=== PATIENT | female | born 1995 | race Caucasian/White ===

== ENCOUNTER 2016-09-25 11:14 | Inpatient (IN) | payer OTHER, MEDICAID ==
--- OUTSIDE RECORDS SUMMARY | 2016-09-25 11:18 | XMS REPORT | Continuity of Care Document ---
:1995 Author Organization [facility] ([facility]) Address [address] [place] [address] Phone [phone] Care Team Providers Name Role Phone Provider, No-Primary Care Primary Care Provider Unavailable Source Comments This disclosure is being made pursuant to the Care Everywhere program, applicable federal and state laws, and may not contain all informaitonavailable regarding this patient.[facility] ([facility]) Active Allergies and Adverse Reactions No Known Allergies Current Medications Prescription Sig. Disp. Refills Start Date End Date Status aspirin 81 mg chewable chew 1 tablet (81 04/02/2016 Active tablet mg) by oral route once daily folic acid 1 mg tablet take 1 tablet (1 03/05/2016 11/30/2016 Active mg) by oral route once daily for 30 days ferrous sulfate 325 mg take 1 capsule by 07/10/2016 02/05/2017 Active (65 mg iron) XR capsule oral route 2 times a day for 30 days URINE ACETONE 07/14/2016 11/11/2016 Active TEST,STRIPS (KETONE URINE TEST NA ) VIT 02/17/2016 02/11/2017 Active CALC,IRON,FOLIC ( VITAMIN PO) calcium carbonate (TUMS) Active (200 mg Ca) 500 mg chewable tablet Active Problems Problem Noted Date Dichorionic diamniotic twin in second trimester 09/03/2016 Currently Estimated Date of Delivery Comments Yes 10/12/2016 Based on Ultrasound Most Recent Encounters Date Type Specialty Providers Description 09/03/2016 Hospital Encounter Obstetrics Erin Montgomery, Dx: Twin , DO antepartum 09/03/2016 Office Visit Maternal Erin Montgomery, Dx: Obesity Medicine DO affecting , antepartum, third trimester (Primary Dx) 09/03/2016 Office Visit Maternal Erin Montgomery Chief Comp: Patient Medicine DO Reported Reason For Visit 08/13/2016 Telephone Obstetrics Sabrina Warren Dx: Twin , A, RN antepartum (Primary Dx) Social History Tobacco Use Types Packs/Day Years Used Date Never Smoker Alcohol Use Drinks/Week oz/Week Comments No 0 Standard drinks or equivalent 0.0 Last Filed Vital Signs Vital Sign Reading Time Taken Blood Pressure 130/65 09/03/2016 1:31 PM MAIL MESSENGER CONTRACTOR Pulse 90 09/03/2016 1:31 PM MAIL MESSENGER CONTRACTOR Temperature 36.4 C (97.5 F) 09/03/2016 1:31 PM MAIL MESSENGER CONTRACTOR Respiratory Rate - - Height 1.62 m (5' 3.78") 09/03/2016 1:31 PM MAIL MESSENGER CONTRACTOR Weight 98.6 kg (217 lb 6 oz) 09/03/2016 1:31 PM MAIL MESSENGER CONTRACTOR Body Mass Index 37.57 09/03/2016 1:31 PM MAIL MESSENGER CONTRACTOR Oxygen Saturation - - Plan of Care Health Maintenance Due Date Last Done Comments Hepatitis B Vaccine (1 of 3 - Primary Series) 1994 HPV Vaccine (1 of 3 - Female/Unknown 3 Dose Series) 2005 Tdap Vaccine 2005 Cervical Cancer Screening 02/24/2012 Lipid Disorder Screening 02/24/2012 MMR Vaccine 02/24/2012 Td Vaccine 02/24/2012 Varicella Vaccine (1 of 2 - Adult - No Evidence of 02/24/2012 Immunity) Influenza Vaccine: Seasonal (#1) 03/09/2016 Results from Last 3 Months IT INFRASTRUCTURE MANAGER/ DIAGNOSIS ULTRASOUND (09/03/2016 2:32 PM) Narrative Obstetric Ultrasound Report Detailed Survey Referral from: Dr. Leonidas Iraheta [address] Department of Obstetrics & Gynecology [address] [facility] [id number] OB Clinic IVF/ Endocrine PATIENT INFORMATION: Name: ELIZABETH EPPERSON MR#: [id number] Age:21 y/oExam Date: 09/03/2016 :1995 Visit #: 1 LMP:Not Available Location: Diagnosis & Treatment Unit # Fetuses: 2 INDICATION:Dichorionic Diamniotic twin gestation with discordant growth. Check growth and anatomy. TWINA Right, Inferior DATING: Assigned GA GA by LMPGA by US (CHELSY)CHELSY NA 36 5/7 wks 34 3/7 wks 10/12/16 BIOMETRY: BPD: 88.5 mm35 5/7 wksHC:325.8 mm 37 0/7 wks(67%) (71%) Femur: 71.8 mm36 5/7 wksAC:355.3 mm 39 3/7 wks(>97% (83%) EFW: 3392 gms7 lbs 8 oz (>95%) Lat Ventricles: 3.8 mm Heart Rate: 153 bpm FL/AC:0.2FL/BPD: 0.81 PRESENTATION/CORD/PLACENTA/FLUID/CERVIX: Presentation: Cephalic Umbilical Cord: Suboptimal visualization.Suboptimal visualization of insertion into the placenta. Placenta: Anterior Amniotic Fluid: Maximum Vertical Pocket=55 mm.Subjective AF Volume : Normal. ANATOMICAL SURVEY: Normal ------ Lateral Ventricles Cervical Spine Thoracic Spine Lumbar Spine Sacrum Four Chamber View Aortic ArchCardiac Pickford Cardiac Position Heart Rate Ductal ArchIVC SVCStomach Kidney - LeftKidney - Right Bladder Suboptimal Cerebellum Cisterna Magna ProfilePalate Nose Lips RVOT LVOT DiaphragmVentral Wall Forearm - Left Forearm - Right Hand - LeftHand - Right Lower Leg - Left Lower Leg - Right Foot - LeftFoot - Right Umbilical Cord Abnormal -------- None identified TARGETED CARDIAC: Ductal Arch: Normal IVC: Normal SVC: Normal TWINB Left, Superior DATING: Assigned GA GA by LMPGA by US (CHELSY)CHELSY NA 37 0/7 wks 34 3/7 wks 10/12/16 BIOMETRY: BPD: 87.8 mm35 3/7 wksHC:327.9 mm 37 2/7 wks(71%) (65%) Femur: 72.2 mm37 0/7 wksAC:359.0 mm 39 6/7 wks(>97% (86%) EFW: 3461 gms7 lbs 10 oz (>95% Lat Ventricles: 5.4 mm Nasal Bone: Present-10.4 Heart Rate: 146 bpmFL/AC:0.2 FL/BPD: 0.82 PRESENTATION/CORD/PLACENTA/FLUID/CERVIX: Presentation: Cephalic Umbilical Cord: Suboptimal visualization.Suboptimal visualization of insertion into the placenta. Placenta: Anterior Amniotic Fluid: Maximum Vertical Pocket=84 mm. ANATOMICAL SURVEY: Normal ------ Lateral Ventricles Profile Cervical Spine Thoracic Spine Lumbar Spine Sacrum Four Chamber ViewCardiac Pickford Cardiac Position Heart Rate DiaphragmStomach Kidney - LeftKidney - Right Bladder Suboptimal Cerebellum Cisterna Magna Palate Nose Lips RVOT LVOT Aortic Arch Ductal ArchIVC SVC Ventral Wall Forearm - Left Forearm - Right Hand - LeftHand - Right Lower Leg - Left Lower Leg - Right Foot - LeftFoot - Right Umbilical Cord Abnormal -------- None identified TARGETED CARDIAC: Ductal Arch: Suboptimal IVC: Suboptimal SVC: Suboptimal FRENCH BINDING FOLDER FINDINGS: Ovaries:Left:Not Seen Right: Not Seen EFW Summary Table Exam DateFetus #EFW Percentile ------ - >95 % >95 % AMNIOTIC FLUID VOLUME: Fetus A NORMALSubjective AF Volume: Normal.Maximum Vertical Pocket:55 mm CERVIX: Suboptimal visualization MULTIPLE GESTATION: Weight discordance:2% (Normal <20%).Dividing membrane was seen. Placentation is dichorionic, diamniotic. COMMENTS: I attest to having personally viewed the images and my comments and impression are as follows: The exam was limited by maternal obesity in . The exam was limited due to the late gestational age. Dichorionic, diamniotic twin gestation. Twin IUP with concordant growth. Twin A EFW > 95% The majority of the anatomy was suboptimally visualized due to late gestational age, Twin B EFW > 95%. The majority of the anatomy was suboptimally visualized due to late gestational age. Polyhydramnios. Consultation: Thank you for allowing us to care for your patient, Elizabeth Epperson.As you know, she is a 21 yo currently at 34w 3d gestation dating based on 8w3d ultrasound per the patient's records.She has been referred due to dichorionic diamniotic twin with accelerated growth. She also has reportedly well controlled A1GDM. She reports blood sugar fasting (70) and 117-130 at 1 hour post prandial. She has a history of severe preeclampsia and had a previous CD (baby was 9# 6oz at 37 weeks!). She reports good movement for both babies. I reviewed her records and the reports from her serial ultrasounds this corroborate the early gestational age dating and show continued, increased growth. She presents to the Diagnosis and Treatment Unit at the [facility] for detailed anatomic survey and MFM consultation. Today's ultrasound findings are as noted above. We reviewed the results of today's ultrasound with the patient, and we discussed the limitations of ultrasound.She was reassured by our findings.We reviewed that dichorionic diamniotic twins are fetuses that each have their own placenta and amniotic sacs. We discussed that a twin is at elevated risk for morbidity and mortality, however, a dichorionic gestation is a favorable finding with regard to risk.We discussed the increased risk of delivery, gestational hypertension, preeclampsia, gestational diabetes and growth abnormalities in multifetal .The risk of labor due to a multiple gestation is approximately 50%. Gestational hypertension or preeclampsia may necessitate early delivery depending on the severity and the gestational age at the time of onset.She reports that she is taking a low dose aspirin daily due to her history of preeclampsia, We also discussed that the risk of aneuploidy in dichorionic pregnancies is approximately twice that of the age-related risk. There were no apparent markers of aneuploidy noted in either twin. Routine use of surveillance in all multiple gestations at/after 32 weeks gestation is appropriate and recommended by many authorities. Due to the accelerated growth I recommend testing can be performed with modified BPPs (NST and CRUZ weekly) beginning as soon as can be arranged and continued until delivery. I also recommend daily movement counting. It is unclear as to the etiology of the accelerated growth in this twin gestation. The patient reports excellent blood sugar control. She is of an increased BMI and had a previously large baby even in the setting of severe preeclampsia at 37 weeks so she is certainly at risk for macrosomia. is not indicated at this time. Ensure her blood sugar reporting is accurate and appropriate as uncontrolled diabetes could be an indication for earlier delivery. We explained to the patient that the timing of delivery is dependent on the course of the and we recommend delivery by 38 weeks for dichorionic diamniotic twins, if the surveillance is reassuring, due to increased incidence of stillbirth after that gestational age. If any of the surveillance is non reassuring, delivery would be indicated sooner. Consider a follow up growth scan in about 3 weeks, this can be performed locally if desired. The patient states that she desires a repeat c section as mode of delivery. It was a pleasure seeing your patient in our Diagnosis and Treatment unit today. Thank you for allowing us to participate in her care. The patient was not scheduled for any follow up ultrasounds. We would be happy to see her again if the need arises.Please do not hesitate to call our clinic with any questions or concerns. Erin Montgomery D.O. Division of Maternal Medicine After relaying the ultrasound results to the patient, I spent an additional 15 minutes with the patient reviewing the follow up plan and recommendations with greater than 50% of that time used in direct counseling and coordination of care. Dr. Erin Montgomery MD ([id number]) Dispatcher Ship Pilot: Mara Melendez RDMS,RVT Procedure Note Cesar, Incoming Imaging Results - Page Sep 03, 2016 3:47 PM MAIL MESSENGER CONTRACTOR Obstetric Ultrasound Report Detailed Survey Referral from: Dr. Leonidas Iraheta [facility] [address] Department of Obstetrics &[place] [address] [address] [place], [id number] OB Clinic IVF/ Endocrine PATIENT INFORMATION: Name: ELIZABETH EPPERSON MR#: [id number] Age: 21 y/o Exam Date: 09/03/2016 : 1995 Visit #: 1 LMP: Not Available Location: Diagnosis & Treatment Unit # Fetuses: 2 INDICATION: Dichorionic Diamniotic twin gestation with discordant growth. Check growth and anatomy. TWIN A Right, Inferior DATING: Assigned GA GA by LMP GA by US (CHELSY) CHELSY NA 36 5/7 wks 34 3/7 wks 10/12/16 BIOMETRY: BPD: 88.5 mm 35 5/7 wks HC: 325.8 mm 37 0/7 wks(67%) (71%) Femur: 71.8 mm 36 5/7 wks AC: 355.3 mm 39 3/7 wks(>97% (83%) EFW: 3392 gms 7 lbs 8 oz(>95%) Lat Ventricles: 3.8 mm Heart Rate: 153 bpm FL/AC: 0.2 FL/BPD: 0.81 PRESENTATION/CORD/PLACENTA/FLUID/CERVIX: Presentation: Cephalic Umbilical Cord: Suboptimal visualization. Suboptimal visualization of insertion into the placenta. Placenta: Anterior Amniotic Fluid: Maximum Vertical Pocket=55 mm. Subjective AFVolume: Normal. ANATOMICAL SURVEY: Normal ------ Lateral Ventricles Cervical Spine Thoracic Spine Lumbar Spine Sacrum Four Chamber View Aortic Arch Cardiac Pickford Cardiac Position Heart Rate Ductal Arch IVC SVC Stomach Kidney - Left Kidney - Right Bladder Suboptimal Cerebellum Cisterna Magna Profile Palate Nose Lips RVOT LVOT Diaphragm Ventral Wall Forearm - Left Forearm - Right Hand - Left Hand - Right Lower Leg - Left Lower Leg - Right Foot - Left Foot - Right Umbilical Cord Abnormal -------- None identified TARGETED CARDIAC: Ductal Arch: Normal IVC: Normal SVC: Normal TWIN B Left, Superior DATING: Assigned GA GA by LMP GA by US (CHELSY) CHELSY NA 37 0/7 wks 34 3/7 wks 10/12/16 BIOMETRY: BPD: 87.8 mm 35 3/7 wks HC: 327.9 mm 37 2/7 wks(71%) (65%) Femur: 72.2 mm 37 0/7 wks AC: 359.0 mm 39 6/7 wks(>97% (86%) EFW: 3461 gms 7 lbs 10 oz(>95% Lat Ventricles: 5.4 mm Nasal Bone: Present-10.4 Heart Rate: 146 bpm FL/AC: 0.2 FL/BPD: 0.82 PRESENTATION/CORD/PLACENTA/FLUID/CERVIX: Presentation: Cephalic Umbilical Cord: Suboptimal visualization. Suboptimal visualization of insertion into the placenta. Placenta: Anterior Amniotic Fluid: Maximum Vertical Pocket=84 mm. ANATOMICAL SURVEY: Normal ------ Lateral Ventricles Profile Cervical Spine Thoracic Spine Lumbar Spine Sacrum Four Chamber View Cardiac Pickford Cardiac Position Heart Rate Diaphragm Stomach Kidney - Left Kidney - Right Bladder Suboptimal Cerebellum Cisterna Magna Palate Nose Lips RVOT LVOT Aortic Arch Ductal Arch IVC SVC Ventral Wall Forearm - Left Forearm - Right Hand - Left Hand - Right Lower Leg - Left Lower Leg - Right Foot - Left Foot - Right Umbilical Cord Abnormal -------- None identified TARGETED CARDIAC: Ductal Arch: Suboptimal IVC: Suboptimal SVC: Suboptimal FRENCH BINDING FOLDER FINDINGS: Ovaries: Left: Not Seen Right: Not Seen EFW Summary Table Exam Date Fetus # EFW Percentile --------- ------- ---- 09/03/16 1 3392 >95 % 09/03/16 2 3461 >95 % AMNIOTIC FLUID VOLUME: Fetus A NORMAL Subjective AF Volume: Normal. Maximum Vertical Pocket: 55 mm CERVIX: Suboptimal visualization MULTIPLE GESTATION: Weight discordance: 2% (Normal <20%). Dividing membrane was seen. Placentation is dichorionic, diamniotic. COMMENTS: I attest to having personally viewed the images and my comments and impression are as follows: The exam was limited by maternal obesity in . The exam was limited due to the late gestational age. Dichorionic, diamniotic twin gestation. Twin IUP with concordant growth. Twin A EFW > 95% The majority of the anatomy was suboptimally visualized due to late gestational age, Twin B EFW > 95%. The majority of the anatomy was suboptimally visualized due to late gestational age. Polyhydramnios. Consultation: Thank you for allowing us to care for your patient, Elizabeth Epperson. Asyou know, she is a 21 yo currently at 34w 3d gestation dating based on 8w3d ultrasound per the patient's records. She has been referreddue to dichorionic diamniotic twin with accelerated growth. She also has reportedly well controlled A1GDM. She reports blood sugar fasting (70) and 117-130 at 1 hour post prandial. She has a history of severe preeclampsia and had a previous CD (baby was 9# 6oz at 37 weeks!). She reports good movement for both babies. I reviewedher records and the reports from her serial ultrasounds this corroborate the early gestational age dating and show continued, increased growth. She presents to the Diagnosis and Treatment Unit at the [facility] today for detailed anatomic survey and MFM consultation. Today's ultrasound findings are as noted above. We reviewed the results of today's ultrasound with the patient, and we discussed the limitations of ultrasound. She was reassured by our findings. We reviewed that dichorionic diamniotic twins are fetuses that each have their own placenta and amniotic sacs. We discussed thata twin is at elevated risk for morbidity and mortality, however, a dichorionic gestation is a favorable finding with regard to risk. We discussed the increased risk of delivery, gestational hypertension, preeclampsia, gestational diabetes and growth abnormalities in multifetal . The risk of labor due to a multiple gestation is approximately 50%. Gestational hypertension or preeclampsia may necessitate early delivery dependingon the severity and the gestational age at the time of onset. She reports that she is taking a low dose aspirin daily due to her history of preeclampsia, We also discussed that the risk of aneuploidy in dichorionic pregnancies is approximately twice that of the age-related risk. There were no apparent markers of aneuploidy noted in either twin. Routine use of surveillance in all multiple gestations at/after32 weeks gestation is appropriate and recommended by many authorities. Due to the accelerated growth I recommend testing can be performed with modified BPPs (NST and CRUZ weekly) beginning as soon as can be arranged and continued until delivery. I also recommend daily movement counting. It is unclear as to the etiology of the accelerated growth in this twin gestation. The patient reports excellent blood sugar control. She is of an increased BMI and had a previously large baby even in the setting of severe preeclampsia at 37 weeks so she is certainly at risk for macrosomia. birthis not indicated at this time. Ensure her blood sugar reporting isaccurate and appropriate as uncontrolled diabetes could be an indication for earlier delivery. We explained to the patient that the timing of delivery is dependent on the course of the and we recommend delivery by 38 weeks for dichorionic diamniotic twins, if the surveillance is reassuring, due to increased incidence of stillbirth after that gestational age. If any of the surveillance is non reassuring, delivery would be indicated sooner. Consider a follow up growth scan in about 3 weeks, this can be performed locally if desired. The patient states that she desires a repeat c section as mode of delivery. It was a pleasure seeing your patient in our Diagnosis and Treatment unit today. Thank you for allowing us to participate in her care. The patient was not scheduled for any follow up ultrasounds. We would be happy to see her again if the need arises. Please do not hesitate to call our clinic with any questions or concerns. Erin Montgomery D.O. Division of Maternal Medicine After relaying the ultrasound results to the patient, I spent an additional 15 minutes with the patient reviewing the follow up plan and recommendations with greater than 50% of that time used in direct counseling and coordination of care. Dr. Erin Montgomery MD ([id number]) Dispatcher Ship Pilot: Mara Melendez RDMS,RVT
[2016-09-25] MEDS ORDERED: OXYTOCIN 20 UNITS in RINGERS SOLUTION,LACTATED 1,000 ML IV ONE (11:35)
[2016-09-25] MEDS: RINGERS SOLUTION,LACTATED 1,000 ML IV PRN ×3 (11:45→13:20)
[2016-09-25 11:51] LABS: Hematocrit 38.1 % (37.0-47.0); Hemoglobin 13.2 gm/dL (12.5-16.0); Mean Cell Volume 95.7 fl (78-100); Mean Corpuscular Hemoglobin 33.2 pg (27-31); Mean Corpuscular Hgb Conc 34.6 g/dl (32-36); Mean Platelet Volume 10.4 fl (6.0-9.5); Neutrophil # 6.3 K/mm3 (1.3-6.0); Neutrophil % 70.8 % (42-75.0); Platelet Count 188 K/mm3 (150-450); Red Blood Count 3.98 M/mm3 (4.2-5.4); Red Cell Distribution Width 14.2 % (11.5-14.0); White Blood Count 8.8 K/mm3 (4.0-10.5)
[2016-09-25 12:03] LABS: Albumin * 2.2 gm/dl (3.4-5.0); Anion Gap 18.3 mmol/L (6.8-13.8); BUN/Creatinine Ratio 14.1 (9.0-21.6); Bilirubin, Total 0.5 mg/dL (0.0-1.1); Ca. Corrected For Albumin 10.3 mg/dL (8.4-10.2); Calcium * 9.2 mg/dL (7.9-10.9); Carbon Dioxide 19.2 mmol/L (24-32.6); Potassium 4.5 mmol/L (3.4-4.6); Total Protein 6.6 gm/dL (6.2-8.2)
[2016-09-25] MEDS ORDERED: ceFAZolin SODIUM 3 GM in DEXTROSE 5 % IN WATER 100 ML IV ONE ×2 (12:30)
[2016-09-25 12:31] LABS: Random Urine Total Protein 57.5 mg/dL (0-12)
[2016-09-25] MEDS: DEXTROSE 5%-LACTATED RINGERS 1,000 ML IV PRN ×3 (12:53→13:59)
[2016-09-25] MEDS ORDERED: oxyCODONE HCL/ACETAMINOPHEN 1 TAB TABLET PO PRN (14:53)
[2016-09-25] MEDS ORDERED: ONDANSETRON HCL/PF 2 MG/ML VIAL IV PRN (14:53)
[2016-09-25] MEDS ORDERED: SIMETHICONE 80 MG TAB.CHEW PO PRN (14:53)
[2016-09-25] MEDS ORDERED: SENNOSIDES 8.6 MG TABLET PO PRN (14:53)
[2016-09-25] MEDS ORDERED: BISACODYL 10 MG SUPP.RECT RC PRN (14:53)
[2016-09-25] MEDS ORDERED: RINGERS SOLUTION,LACTATED 1,000 ML IV ONE (14:55)
--- NOTE | 2016-09-25 15:07 | OR ---
Operative Report - Dictated Report Narrative: Indication: 21 year old 2 para 1 with 37-4/7 week diamniotic dichorionic twins, gestational hypertension, gestational diabetes, and prior section presents in labor and desiring permanent sterilization. Pre Operative Diagnosis: 37-4/7 week diamniotic dichorionic twins, morbid obesity, gestational hypertension, gestational diabetes, prior section , labor, desires permanent sterilization Post Operative Diagnosis: Same. Procedure: Repeat low transverse section. Bilateral tubal fulguration Surgeon: Edil Iraheta DO Sales Representative Aircraft: none Anesthesia: Spinal with duramorph, TAP block Estimated Blood Loss: 400 mL Urine Output: 200 mL clear urine Fluids Replacement: 1600 mL Drains: Camp to gravity Surgical Complications: None Specimens: Placenta to pathology Findings: Baby A-Female born at 1357 on 09/25/2017 in cephalic presentation with Apgars 9 and 9, weighing 3886 g. Baby B-male born at 1359 on 09/25/2016 in cephalic presentation with Apgars 9 and 9, weighing 4140 g. Extreme subcutaneous fluid collection in the abdominal pannus and extensive rippling of the skin of the abdomen. Normal uterus, tubes, ovaries Technique: The patient was taken to the operating room and placed in dorsal supine position with a left lateral tilt. After adequate spinal anesthesia, camp catheter inserted, SCDs placed, and 3 g of Ancef given preoperatively, the abdominal cavity was entered using sharp and blunt dissection. Two rolled laps were placed in the pericolic gutters on either side of the uterus. A transverse incision was made in the lower uterine segment and extended laterally and upwardly with digital traction. Clear fluid was noted upon amniotomy of baby A's gestation sac. Umbilical cord protruded through the amniotomy. Baby A was delivered easily in cephalic presentation. The cord was clamped and cut and infant was handed off to awaiting peditrician. A yellow umbilical clamp was placed on the cord of baby A's placenta. Clear fluid was noted upon amniotomy of baby B's gestation sac. Baby B was delivered easily in cephalic presentation. The cord was clamped and cut and infant was handed off to awaiting automatic nailing machine operator. The placentas delivered spontaneously. The uterus was cleared of clot and debris. Uterine incision was closed with 0 Vicryl in a running stitch. A second imbricating layer was placed with the same suture. Excellent hemostasis was noted. The right fallopian tube was identified and followed out to the fimbriated end. A 3 cm segment of the tube was coagulated 2 -3 cm from the cornual region using Kleppinger's with an audible meter attached to assure through and through burn. The exact same was done on the patient's left side. The rolled laps were removed from the abdominal cavitiy. The peritoneum was closed with a running 3-0 Monocryl. The same suture was used to approximate the rectus and pyramidalis muscles. The fascia was closed with a running 0 Vicryl. The subcutaneous layer was closed with a running 3-0 Monocryl. The same suture was used to approximate the subdermal layer. The skin was closed with Exophin adhesive dressing. Sponge, lap, needle, and instrument count were correct x 2. Disposition: To post anesthesia care unit in good condition History for MU Definition: * The number of deliveries resulting in a live the patient experienced prior to current hospitalization * The previous delivery of live twins or any live multiple gestation is considered one live event. *If primagravida or nulliparous is documented select zero for the number of previous live births. Live Events: 1
[2016-09-25] MEDS ORDERED: diphenhydrAMINE HCL 50 MG/ML VIAL IV PRN (15:09)
[2016-09-25] MEDS ORDERED: NALOXONE HCL 1 MG/1 ML SYRG IV PRN ×2 (15:09)
[2016-09-25] MEDS: DOCUSATE SODIUM 100 MG CAPSULE PO SCH (20:57)
[2016-09-25] MEDS: FERROUS SULFATE 325 MG TABLET PO SCH (20:57)
[2016-09-25] MEDS: PRENATAL VIT#96/FERROUS FUM/FA 1 TAB TABLET PO SCH (20:57)
[2016-09-25] MEDS: ENOXAPARIN SODIUM 40 MG/0.4 ML SYRG SC SCH (21:18)
[2016-09-26] MEDS: oxyCODONE HCL/ACETAMINOPHEN 1 TAB TABLET PO PRN ×5 (01:40→20:38)
[2016-09-26] MEDS: IBUPROFEN 800 MG TABLET PO PRN ×3 (01:40→15:48)
[2016-09-26] MEDS: DOCUSATE SODIUM 100 MG CAPSULE PO SCH ×2 (08:36→20:39)
--- NOTE | 2016-09-26 09:51 | PN ---
Subjective - Date and Time Seen Date: 09/26/16 Time: 09:46 Objective - Vitals Vitals: Last Vital Signs Temp 36.7 C 09/26/16 08:47 Pulse 77 09/26/16 08:47 Resp 20 09/26/16 08:47 BP 127/76 09/26/16 08:47 Pulse Ox 99 09/26/16 08:47 Patient denies complaints. Tolerating regular diet. Ambulating without difficulty. Pain well controlled. Lochia wnl. Abdomen - soft, appropriately tender, large amount of thumb pannus edema still present Incision - clean, dry, intact Uterus - firm, at umbilicus -1 No calf tenderness Impression: Post op day #1 s/p repeat section. Status post bilateral tubal ligation. Gestational diabetes - blood sugar pending Plan: Continue routine post-operative/ care - Abnormal Lab Findings Abnormal Lab Findings: Abnormal Lab Results 09/25/16 09/25/16 09/25/16 Range/Units 11:40 11:40 12:10 RBC 3.98 L (4.2-5.4) M/mm3 MCH 33.2 H (27-31) pg RDW 14.2 H (11.5-14.0) % MPV 10.4 H (6.0-9.5) fl Immature Gran % (Auto) 1.60 H (0.001-0.429) % Immature Gran # (Auto) 0.14 H (0.000-0.0310) K/mm3 Neutrophils # 6.3 H (1.3-6.0) K/mm3 Carbon Dioxide 19.2 L (24-32.6) mmol/L Anion Gap 18.3 H (6.8-13.8) mmol/L Calcium Adj for Albumin 10.3 H (8.4-10.2) mg/dL Alkaline Phosphatase 264 H (50-170) U/L Albumin 2.2 L (3.4-5.0) gm/dl Ur Random Creatinine 201.4 H (60-200) mg/dL U Random Total Protein 57.5 H (0-12) mg/dL U [place] Prot/Creat Ratio 286 H (0-199) mg/gm Cauti Physician Documentation - Urinary Catheter Management Uretheral (Lopez) Date of Insertion: 09/25/16 Time of Insertion: 13:35 Date of Removal: 09/26/16 Time of Removal: 01:46
--- NOTE | 2016-09-26 12:50 | PN ---
Subjective - Date and Time Seen Date: 09/26/16 Time: 12:49 Subjective Narrative: The patient denies complications related to Duramorph spinal and bilateral ultrasound-guided tap blocks. Pain appears to be well-controlled. Objective - Review of Systems Generalized/Overall Review: Reports: No Symptoms Reported - Vitals Vitals: Last Vital Signs Temp 36.7 C 09/26/16 08:47 Pulse 77 09/26/16 08:47 Resp 20 09/26/16 08:47 BP 127/76 09/26/16 08:47 Pulse Ox 99 09/26/16 08:47 - Exam Constitutional: Present: Alert, Oriented x3, Cooperative, No distress Cauti Physician Documentation - Urinary Catheter Management Uretheral (Lopez) Date of Insertion: 09/25/16 Time of Insertion: 13:35 Date of Removal: 09/26/16 Time of Removal: 01:46 Assessment/Plan Plan Narrative: Continue current pain medications as prescribed.
[2016-09-26] MEDS: PRENATAL VIT#96/FERROUS FUM/FA 1 TAB TABLET PO SCH (20:38)
[2016-09-26] MEDS: FERROUS SULFATE 325 MG TABLET PO SCH (20:38)
[2016-09-26] MEDS: ENOXAPARIN SODIUM 40 MG/0.4 ML SYRG SC SCH (21:57)
[2016-09-27] MEDS: IBUPROFEN 800 MG TABLET PO PRN ×3 (07:59→21:47)
[2016-09-27] MEDS: oxyCODONE HCL/ACETAMINOPHEN 1 TAB TABLET PO PRN ×5 (07:59→21:48)
--- NOTE | 2016-09-27 08:58 | PN ---
Subjective - Date and Time Seen Date: 09/27/16 Time: 08:56 Objective - Vitals Vitals: Last Vital Signs Temp 36.5 C 09/27/16 08:14 Pulse 81 09/27/16 08:14 Resp 18 09/27/16 08:14 BP 137/85 09/27/16 08:14 Pulse Ox 99 09/27/16 08:14 Patient denies complaints. Ambulating well. Tolerating regular diet. Pain well controlled. Lochia wnl. Abdomen - soft, appropriately tender Incision - clean, dry, intact Uterus - firm, at umbilicus -2 No calf tenderness Elevated blood sugars yesterday. Fasting blood sugar today 71. One-hour postprandial pending Impression: Post op day #2 s/p repeat section. Gestational diabetes Plan: Continue routine post-operative/ care. Recheck blood sugars today Cauti Physician Documentation - Urinary Catheter Management Uretheral (Lopez) Date of Insertion: 09/25/16 Time of Insertion: 13:35 Date of Removal: 09/26/16 Time of Removal: 01:46
[2016-09-27] MEDS: DOCUSATE SODIUM 100 MG CAPSULE PO SCH ×2 (12:12→21:48)
[2016-09-27] MEDS: PRENATAL VIT#96/FERROUS FUM/FA 1 TAB TABLET PO SCH (21:48)
[2016-09-27] MEDS: FERROUS SULFATE 325 MG TABLET PO SCH (21:48)
[2016-09-27] MEDS: ENOXAPARIN SODIUM 40 MG/0.4 ML SYRG SC SCH (21:52)
--- NOTE | 2016-09-28 08:34 | PN ---
Subjective - Date and Time Seen Date: 09/28/16 Time: 08:32 Objective - Vitals Vitals: Last Vital Signs Temp 36.1 C L 09/27/16 18:36 Pulse 80 09/27/16 18:36 Resp 18 09/27/16 18:36 BP 129/75 09/27/16 18:36 Pulse Ox 97 09/27/16 18:36 Patient denies complaints. Ambulating without difficulty. Tolerating regular diet. Pain well controlled. Lochia wnl. Abdomen - soft, appropriately tender Incision - clean, dry, intact Uterus - firm, at umbilicus -3 No calf tenderness, 1+ pitting edema in lower extremities and abdominal pannus Impression: Post op day #3 s/p repeat section. Status post tubal ligation. Gestational diabetes-resolving. Gestational hypertension-resolved Plan: Routine discharge instructions. Follow-up in the office in 2 weeks for blood pressure and incision check. Continue diabetic diet for the next few weeks. Cauti Physician Documentation - Urinary Catheter Management Uretheral (Lopez) Date of Insertion: 09/25/16 Time of Insertion: 13:35 Date of Removal: 09/26/16 Time of Removal: 01:46
[2016-09-28 08:51] VITALS: BP 140/83
[2016-09-28] MEDS: oxyCODONE HCL/ACETAMINOPHEN 1 TAB TABLET PO PRN (09:33)
[2016-09-28] MEDS: IBUPROFEN 800 MG TABLET PO PRN (09:33)
[2016-09-28] MEDS: DOCUSATE SODIUM 100 MG CAPSULE PO SCH (09:33)
== END 2016-09-28 11:00 | disposition home or self-care (01) | DRG 765 ==
LOC: OB 11:14
PROVIDERS: ADMIT Obstetrics & Gynecology; ATTEND Obstetrics & Gynecology
PROC: 0U570ZZ Destruction of Bilateral Fallopian Tubes, Open Approach (ICD-10-PCS; 2016-09-25)
PROC: 4A1HXCZ Monitoring of Products of Conception, Cardiac Rate, External Approach (ICD-10-PCS; 2016-09-25)
PROC: 10D00Z1 Extraction of Products of Conception, Low, Open Approach (ICD-10-PCS; principal; 2016-09-25 13:30)
DX: O13.4 Gestational [pregnancy-induced] hypertension without significant proteinuria, complicating childbirth (principal); Z68.41 Body mass index [BMI] 40.0-44.9, adult; O30.043 Twin pregnancy, dichorionic/diamniotic, third trimester; O24.420 Gestational diabetes mellitus in childbirth, diet controlled; O99.214 Obesity complicating childbirth; E66.01 Morbid (severe) obesity due to excess calories; O34.211 Maternal care for low transverse scar from previous cesarean delivery; Z3A.38 38 weeks gestation of pregnancy; Z37.2 Twins, both liveborn

== ENCOUNTER 2016-11-01 06:30 | Emergency (ER) | payer OTHER, MEDICAID ==
[2016-11-01 06:38] VITALS: BP 133/85
--- OUTSIDE RECORDS SUMMARY | 2016-11-01 06:50 | XMS REPORT | Continuity of Care Document ---
:1995 Author Organization [facility] ([facility]) Address [address] [place] [address] Phone [phone] Care Team Providers Name Role Phone Provider, No-Primary Care Primary Care Provider Unavailable Source Comments This disclosure is being made pursuant to the Care Everywhere program, applicable federal and state laws, and may not contain all informaitonavailable regarding this patient.[facility] ([facility]) Active Allergies and Adverse Reactions No [...] Taken Blood Pressure 130/65 09/03/2016 1:31 PM TRIAGE ASSISTANT Pulse 90 09/03/2016 1:31 PM TRIAGE ASSISTANT Temperature 36.4 C (97.5 F) 09/03/2016 1:31 PM TRIAGE ASSISTANT Respiratory Rate - - Height 1.62 m (5' 3.78") 09/03/2016 1:31 PM TRIAGE ASSISTANT Weight 98.6 kg (217 lb 6 oz) 09/03/2016 1:31 PM TRIAGE ASSISTANT Body Mass Index 37.57 09/03/2016 1:31 PM TRIAGE ASSISTANT Oxygen Saturation - - Plan of Care [...] (#1) 03/09/2016 Results from 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 Leonidas Iraheta [address] Department of Obstetrics & Gynecology [address] [facility] [id number] OB Clinic IVF/ Endocrine PATIENT INFORMATION: Name: ELIZABETH EPPERSON MR#: [id number] Age:21 y/oExam Date: 09/03/2016 :1995 Visit #: [...] Spine Sacrum Four Chamber View Aortic ArchCardiac Maud Cardiac Position Heart Rate Ductal ArchIVC SVCStomach [...] Spine Lumbar Spine Sacrum Four Chamber ViewCardiac Maud Cardiac Position Heart Rate DiaphragmStomach Kidney - [...] Ductal Arch: Suboptimal IVC: Suboptimal SVC: Suboptimal WATER TREATMENT PLANT OPERATOR FINDINGS: Ovaries:Left:Not Seen Right: Not Seen EFW [...] the Diagnosis and Treatment Unit at the [facility] for detailed anatomic survey and MFM consultation. [...] of care. Dr. Erin Montgomery MD ([id number]) Threat Analyst: Mara Melendez RDMS,RVT Procedure Note Cesar, Incoming Imaging Results - Page Sep 03, 2016 3:47 PM TRIAGE ASSISTANT Obstetric Ultrasound Report Detailed Survey Referral from: Dr. Leonidas Iraheta [facility] [address] Department of Obstetrics &[place] [address] [address] [place], [id number] OB Clinic IVF/ Endocrine PATIENT INFORMATION: Name: ELIZABETH EPPERSON MR#: [id number] Age: 21 y/o Exam Date: 09/03/2016 : [...] Sacrum Four Chamber View Aortic Arch Cardiac Maud Cardiac Position Heart Rate Ductal Arch IVC [...] Lumbar Spine Sacrum Four Chamber View Cardiac Maud Cardiac Position Heart Rate Diaphragm Stomach Kidney [...] Ductal Arch: Suboptimal IVC: Suboptimal SVC: Suboptimal WATER TREATMENT PLANT OPERATOR FINDINGS: Ovaries: Left: Not Seen Right: Not [...] the Diagnosis and Treatment Unit at the [facility] today for detailed anatomic survey and [...] of care. Dr. Erin Montgomery MD ([id number]) Threat Analyst: Mara Melendez RDMS,RVT
[2016-11-01 07:18] LABS: Urine Bilirubin 6 mg/dl (NEGATIVE); Urine Blood Negative /ul (NEGATIVE); Urine Ketone 5 mg/dL (NEGATIVE); Urine Nitrite Negative (NEGATIVE); Urine Protein 100 mg/dL (NEGATIVE); Urine Specific Gravity 1.015 SP.GR. (1.005-1.010); Urine Urobilinogen >=8.0 EU/dl (NORMAL); Urine pH 7.5 pH (5.0-7.0)
--- NOTE | 2016-11-01 07:31 | ERNOTE ---
Back Pain ER HPI Date of Service: 11/01/16 Presenting Symptoms: injury/pain to back Source: patient Exam Limitations: no limitations Immunizations: IMMUNIZATION HX Immunizations Up to Date Yes History of Influenza Vaccine No Allergies/Adverse Reactions: Allergies No Known Allergies Allergy (Verified 11/01/16 06:38) Home Medications: HOME MEDICATIONS Ibuprofen [Motrin] 200 - 800 mg PO Q6H PRN #100 tab 09/28/16 [Last Taken Unknown ] oxyCODONE HCL/ACETAMINOPHEN [Percocet 5-325 mg Tablet] 1 each PO Q4H PRN #20 tablet 09/28/16 [Last Taken Unknown] Cyclobenzaprine HCl [Flexeril] 10 mg PO TID PRN #30 tab 11/01/16 [Last Taken Unknown] Naproxen [Naprosyn] 500 mg PO BID PRN #30 tab 11/01/16 [Last Taken Unknown] Narrative: 21-year-old female states she's been having pain in her posterior right ribs and right lumbar area on and off since delivery a month ago. She's been using BenGay or icy hot and home remedies as well as leftover Percocet from the C- section with pretty good relief but this morning it was more painful and unrelieved by her usual methods and so she came to the emergency department. She had gestational diabetes but no problem at this time. She is not having flank pain per se and does not have urinary tract signs or symptoms Review of Systems - Review of Systems Constitutional: Present: no symptoms reported EYE: Present: no symptoms reported ENT: Present: no symptoms reported Respiratory: Present: no symptoms reported Cardiology: Present: no symptoms reported Gastrointestinal/Abdominal: Present: no symptoms reported Genitourinary: Present: no symptoms reported Musculoskeletal: Present: See HPI Skin: Present: no symptoms reported Neurological: Present: no symptoms reported Endocrine: Present: no symptoms reported Hematologic/Lymphatic: Present: no symptoms reported Psych: Present: no symptoms reported - Patient's Past Medical History Patient History - Medical: Other Patient History - Cardiac/Respiratory: No pertinent hx Patient History - Cancer: No Hx of Cancer Patient History - Surgical Procedures: - Social History Living Situations: home Psych History: No pertinent hx Smoking Status: Never smoker - Immunizations Immunizations Up to Date: Yes History of Influenza Vaccine: No Physical Exam - Physical Exam General Appearance: Present: alert, mild distress Eye Exam: Normal inspection: bilateral, PERRL: bilateral Ears, Nose, Throat: Present: normal ENT inspection, H, normal pharynx Neck: Present: normal inspection, nontender Respiratory: Present: no respiratory distress, normal breath sounds, no accessory muscle use, chest nontender, lungs clear Cardiovascular/Chest: Present: regular rate, rhythm, no murmur, normal peripheral pulses Gastrointestinal/Abdominal: Present: normal bowel sounds, nontender, nondistended, soft, no organomegaly Rectal Exam: Present: deferred Back Exam: Present: normal inspection, normal range of motion, no CVA tenderness , no vertebral tenderness, muscle spasm - pain and spasm palpable in the right lumbar region as well as the right posterior intercostal areas of the lower ribs Extremity Exam: Present: normal inspection, non-tender, no edema, normal range of motion Neurological Exam: Present: alert, oriented, normal mood/affect, no motor/ sensory deficits Skin Exam: Present: normal color, warm/dry Lymphatic Exam: Present: no adenopathy ED Progress - Vital Signs Vital Signs: Vital Signs 11/01/16 11/01/16 06:30 06:33 Temperature 37.5 C 36.8 C Pulse Rate 56 L Respiratory 14 Rate Blood Pressure 149/78 133/85 O2 Sat by Pulse 100 Oximetry - Progress/Reassessment Chief Complaint: Back Pain Plan - Plan Plan: We'll continue home therapies and prescribe muscle relaxants and anti- inflammatories and have her follow-up with her primary care provider Departure Clinical Impression: Back pain Qualifiers: Back pain location: low back pain Chronicity: acute Back pain laterality: right Sciatica presence: without sciatica Qualified Code(s): M54.5 - Low back pain Intercostal muscle strain Qualifiers: Encounter type: initial encounter Qualified Code(s): S29.011A - Strain of muscle and tendon of front wall of thorax, initial encounter - Departure Disposition: Home self-care Instructions: Back Pain, Adult Additional Instructions: Continue home therapies with moist heat, gentld massage and Ck Rodriguez or IcyHot. Follow up with your doctor in a week to 10 days if not better Prescriptions: Cyclobenzaprine HCl [Flexeril] 10 mg PO TID PRN #30 tab PRN Reason: MUSCLE SPASMS Naproxen [Naprosyn] 500 mg PO BID PRN #30 tab PRN Reason: Pain
[2016-11-01 07:38] LABS: Urine Appearance Clear; Urine Color Amber; Urine RBC TRACE /hpf (0-5); Urine WBC TRACE /hpf (0-5)
[2016-11-01 07:39] LABS: Urine Bacteria TRACE
== END 2016-11-01 07:46 | disposition home or self-care (01) ==
LOC: ER 06:30
DX: M54.5 Low back pain (principal); S29.011A Strain of muscle and tendon of front wall of thorax, initial encounter